=== PATIENT | female | born 1965 | race American Indian/Alaskan Native ===

== ENCOUNTER 2016-12-01 16:01 | Emergency (ER) | payer MEDICARE, MEDICAID ==
[2016-12-01 16:10] VITALS: BMI 24.0
--- NOTE | 2016-12-01 16:32 | C.PDOC ---
History Of Present Illness 51 yr old female with PMHx of psych, hypertension and chronic pain, presents to the ER with complaints of dysuria and body aches for the past 4 days. patient states she is sexually active without protection. Patient is also on narcotics for back pain. Patient denies new trauma, fever, nausea, vomiting, abdominal pain, diarrhea, vaginal bleeding or discharge. Time Seen by Provider: 12/01/16 16:17 Chief Complaint (Nursing): Female Genitourinary History Per: Patient History/Exam Limitations: no limitations Onset/Duration Of Symptoms: Days (4) Current Symptoms Are (Timing): Still Present Past Medical History Reviewed: Historical Data, Nursing Documentation, Vital Signs - Medical History PMH: Anxiety, Depression, HTN, Sexually Transmitted Disease (Herpes simplex 2) Family History: States: No Known Family Hx - Social History Hx Alcohol Use: No Hx Substance Use: No - Immunization History Hx Tetanus Toxoid Vaccination: No Hx Influenza Vaccination: No Hx Pneumococcal Vaccination: No Review Of Systems Except As Marked, All Systems Reviewed And Found Negative. Constitutional: Positive for: Other ((+) Body aches ). Negative for: Fever Gastrointestinal: Negative for: Nausea, Vomiting, Abdominal Pain, Diarrhea Genitourinary: Positive for: Dysuria. 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 this is chronic pain syndrome. will not treat in er. urine treated. advise outpt f/u and reutrn precauitons, pt ambulatory in nad. Disposition - Disposition Referrals: [facility] [Outside] [facility] [Outside] Disposition: HOME/ ROUTINE Disposition Time: 17:26 Condition: STABLE Additional Instructions: please follow up with your doctor/clinic. reutnr to er with worsening ysmptoms or concerns. Prescriptions: Nitrofurantoin Macrocrystals [Macrobid] 100 mg PO BID #14 cap Instructions: Urinary Tract Infection in Women (ED), Dysuria (ED) - Clinical Impression Clinical Impression: UTI (urinary tract infection), Chronic pain - Scribe Statement The provider has reviewed the documentation as recorded by the Scribe Ashley Mitchell Provider Attestation: All medical record entries made by the Flexibe were at my direction and personally dictated by me. I have reviewed the chart and agree that the record accurately reflects my personal performance of the history, physical exam, medical decision making, and the department course for this patient. I have also personally directed, reviewed, and agree with the discharge instructions and disposition.
[2016-12-01 17:00] LABS: HCG,QUALITATIVE URINE NEGATIVE (NEGATIVE)
[2016-12-01 17:06] LABS: SQUAMOUS EPITHIAL 6 /hpf (0-5); URINE BACTERIA MOD (<OCC); URINE BILIRUBIN NEGATIVE (NEGATIVE); URINE CLARITY Hazy (Clear); URINE COLOR Amber (YELLOW); URINE GLUCOSE (UA) NORMAL (Normal); URINE NITRATE NEGATIVE (NEGATIVE); URINE PROTEIN 1+ mg/dL (NEGATIVE)
[2016-12-01 17:11] LABS: URINE BLOOD 1+ (NEGATIVE); URINE LEUKOCYTE ESTERASE 3+ Leu/uL (Negative)
[2016-12-01] MEDS ORDERED: Naproxen 550 mg Tab PO STA (17:32)
[2016-12-01 17:37] VITALS: BP 144/76; PULSE 75; RESP 18; TEMP 97.3; O2SAT 100
== END 2016-12-01 17:37 | disposition home or self-care (01) ==
LOC: C.ER 16:01
DX: N39.0 Urinary tract infection, site not specified (principal); G89.29 Other chronic pain